=== PATIENT | female | born 1990 | race Caucasian/White ===

== ENCOUNTER → 2017-01-30 | Outpatient (CLI) | payer OTHER ==
[~2017-01-30] MED LIST: ONDANSETRON HCL4 M2 PO; PHENERGAN 25 MG25 M1 PO; PRENATAL + DHA1 EAC1 PO; PROMS25 WY RECTAL
== END ==
LOC: RAD 09:46
DX: Z34.90 Encounter for supervision of normal pregnancy, unspecified, unspecified trimester (principal)

== ENCOUNTER → 2018-02-07 | Outpatient (CLI) | payer OTHER | LOC: MRI 12:06 | DX: R20.2 Paresthesia of skin (principal) ==

== ENCOUNTER → 2018-02-12 | Outpatient (CLI) | payer OTHER | LOC: ULTRA 08:54 | DX: E04.2 Nontoxic multinodular goiter (principal); R22.1 Localized swelling, mass and lump, neck ==

== ENCOUNTER → 2018-08-12 | Outpatient (CLI) | payer OTHER | LOC: ULTRA 08:31 | DX: E04.2 Nontoxic multinodular goiter (principal) ==

== ENCOUNTER → 2021-03-31 | Outpatient (CLI) | payer OTHER | LOC: RAD 14:41 | PROVIDERS: ATTEND Podiatrist Foot & Ankle Surgery | DX: M17.0 Bilateral primary osteoarthritis of knee (principal); M20.12 Hallux valgus (acquired), left foot; M20.11 Hallux valgus (acquired), right foot ==